=== PATIENT | female | born 1985 | race Caucasian/White ===

== ENCOUNTER 2019-10-24 15:00 | Inpatient (IN) | payer OTHER ==
[2019-10-24] MEDS: ELECTROLYTE-148 SOLN 1,000 ML IV SCH (16:30)
[2019-10-24 16:33] LABS: BASO % 0.6 % (0-2.0); EOS % 0.8 % (0-4.5); HEMATOCRIT 29.9 % (32.4-45.2); HEMOGLOBIN 9.7 GM/dL (10.7-15.3); LYMPH % 26.8 % (8-40); MCHC 32.5 g/dl (32.0-36.0); MEAN CELL VOLUME 83.2 fl (80-96); MEAN PLT VOLUME 9.6 fl (7.5-11.1); NEUT % 63.8 % (42.8-82.8); PLATELET COUNT 213 K/MM3 (134-434); RDW 15.4 % (11.6-15.6); WHITE BLOOD COUNT 8.8 K/mm3 (4.0-10.0)
[2019-10-24 16:46] LABS: INR 0.93 (0.83-1.09)
[2019-10-24 16:49] LABS: ACTIVATED PTT 26.9 SECONDS (25.2-36.5)
[2019-10-24 16:57] VITALS: BMI 33.4
[2019-10-24 17:03] LABS: BLOOD UREA NITROGEN 13.3 mg/dL (7-18); CALCIUM 8.8 mg/dL (8.5-10.1); CREATININE 0.6 mg/dL (0.55-1.3); POTASSIUM 3.6 mmol/L (3.5-5.1)
[2019-10-24] MEDS ORDERED: LABETALOL HCL 200 MG TABLET (FP) ONE (17:48)
[2019-10-24] MEDS ORDERED: LABETALOL HCL 200 MG TABLET (FP) PO ONE (18:10)
--- NOTE | 2019-10-24 20:07 | HP ---
Past Medical History - Primary Care Physician PCP:: Otilio Guerrero E - Admission Chief Complaint: Patient is 36 wks 2 days of her 3rd . She was scheduled for repeat c/section and trubal sterilization atr 39 wks. Her BP deterorated in spite of being placed on Labetalol. LFTs are up. Total proteins in 24 hrs urine collection is 3808 mg. She will be delivered tomorrow. Given BMZ some week ago History Source: Patient - Past Medical History Cardiovascular: No: AFIB, Aneurysm, Aortic Insufficiency, Aortic Stenosis, CAD, CHF, Deep Vein Thrombosis, HTN, Hyperlipdemia, ND, Mitral Insufficiency, Mitral Stenosis, Murmur, Pulmonary Hypertension, Other Pulmonary: No: Asthma, Bronchitis, Cancer, COPD, O2 Dependent, Pneumonia, Previously Intubated, Pulmonary Embolus, Pulmonary Fibrosis, Sleep Apnea, Other Gastrointestinal: No: Ascites, Cancer, Constipation, Crohn's Disease, Diverticulitis, Diverticulosis, Esophageal Varices, Gastritis, GERD, GI Bleed, Hemorrhoids, Hiatal Hernia, Inflamatory Bowel Disease, Irritable Bowel Disease, Pancreatitis, Peptic Ulcer Disease, Ulcerative Colitis, Other Hepatobiliary: No: Cirrhosis, Cholelithiasis, Cholecystitis, Choledocholithiasis , Hepatitis A, Hepatitis B, Hepatitis C, Other Renal/: No: Renal Failure, Renal Inusuff, BPH, Cancer, Hematuria, Hemodialysis , Neurogenic Bladder, Renal Calculi, UTI, Other ...: 3 ...Para: 2 ...Term: 2 ...: 0 ...Spon : 0 ...Induced : 0 ...Multiple Gestation: 0 ...LMP: 02/12/19 ... Weeks Gestation by Dates: 36.2 ...EDC by Dates: 11/19/19 ...EDC by Sono: 11/19/19 Heme/Onc: No: Anemia, B12 Deficiency, Bleeding Disorder, Cancer, Current Chemotherapy, Current Radiation Therapy, Hemochromatosis, Hypercoaguable State, Myeloproliferative Synd, Sickle Cell Disease, Sickle Cell Trait, Thrombocytopenia, Other Infectious Disease: No: AIDS, C-Diff, Herpes Zoster, HIV, MRSA, STD's, Tuberculosis, VREF, Other Psych: No: Addictions, Anxiety, Bipolar, Depression, Panic, Psychosis, Schizophrenia, Other Musculoskeletal: No: Bursitis, Chronic low back pain, Hemiparesis, Hemiplegia, Osteoarthritis, Paraplegia, Other ENT: No: Allergic Rhinitis, Sinusitis, Other Endocrine: No: [place]'s Disease, [place]'s Disease, Diabetes Insipidus, Diabetes Mellitus, Hyperparathyroidism, Hyperthyroidism, Hypothyroidism, Osteopenia, SIADH, Other - Past Surgical History Past Surgical History: No: None, AAA Repair, AICD, Amputation, Appendectomy, Arthrosocopy, AV Fistula/Graft, Bariatric Surgery, Breast Biopsy, Bypass, CABG, Carotid Endarterectomy, Cataract Removal, Cholecystectomy, Colectomy, Colonoscopy, Colostomy, Craniotomy, , Cystectomy, Hernia Repair, Hysterectomy, Ileal Conduit, Ileosotomy, Joint Replacement, Kidney Transplant, Laminectomy, Liver Transplant, Mastectomy, Nephrectomy, Oopherectomy, Orchiectomy, Permanent Pacemaker, Prostatectomy, Splenectomy, Stent, Thoracotomy , TURP, Tonsillectomy, Tubal Ligation, Upper Endoscopy, Valve Replacement, Vasectomy, Vein Stripping/Ligation Hx Myomectomy: No Hx Transabdominal Cerclage: No - Smoking History Smoking history: Never smoked Have you smoked in the past 12 months: No Aproximately how many cigarettes per day: 0 - Alcohol/Substance Use Hx Alcohol Use: No Home Medications - Allergies Allergies/Adverse Reactions: Allergies Allergy/AdvReac Type Severity Reaction Status Date / Time No Known Drug Allergies Allergy Verified 10/24/19 16:24 shellfish derived Allergy Itching Verified 10/24/19 16:24 - Home Medications Home Medications: Ambulatory Orders Aspirin [Ecotrin] 81 mg PO DAILY 10/19/19 Pnv No.95/Ferrous Fum/Folic AC [ Vitamin Tablet] 1 each PO DAILY Labetalol HCl [Normodyne -] 100 mg PO BID 10/23/19 Home Medications (free text): Off baby-ASA for a week. Review of Systems - Review of Systems Constitutional: denies: No Symptoms, Chills, Diaphoresis, Fever, Lethargy, Loss of Appetite, Malaise, Night Sweats, Unintentional Wgt. Loss, Weakness, Other HENT: denies: No Symptoms, Difficult Swallowing, Ear Discharge, Ear Pain, Epistaxis, Gingival Bleeding, Hearing Loss, Mouth Swelling, Nasal Congestion, Ocular Prosthesis, Throat Pain, Toothache, Ringing in Ears, Other Cardiovascular: denies: No Symptoms, Chest Pain, Edema, Palpitations, Shortness of Breath, Other Respiratory: denies: No Symptoms, Cough, Exercise Intolerance, Hemoptysis, Orthopnea, PND, Snoring, SOB, SOB on Exertion, Wheezing, Other Gastrointestinal: denies: No Symptoms, Abdominal Pain, Bloating, Constipation, Diarrhea, Dysphagia, Indigestion, Melena, Nausea, Rectal Bleeding, Vomiting, Vomiting Blood, Other Genitourinary: denies: No Symptoms, Burning, Discharge, Dysuria, Flank Pain, Frequency, Hematuria, Incontinence, Lesions, Menses, Pain, Testicular Mass, Testicular Pain, Testicular Swelling, Urgency, Vaginal Bleeding, Other Breasts: denies: No Symptoms Reported, See HPI, Breast Implants, Discharge from Nipple, Lumps, Pain, Skin Changes, Other Musculoskeletal: denies: No Symptoms, Back Pain, Crepitus, Decreased ROM, Extremity Pain, Joint Pain, Joint Swelling, Muscle Pain, Muscle Cramps, Muscle Weakness, Other Integumentary: denies: No Symptoms, Blister, Bruising, Change in Color, Eczema, Erythema, Incision, Lesions, Lump, Pallor, Pruritis, Rash, Wound, Other Neurological: denies: No Symptoms, Change in LOC, Change in Speech, Confusion, Dizziness, Headache, Incoordination, Numbness, Parasthesia, Pre-Existing Deficit , Seizure, Syncope, Tremors, Unsteady Gait, Weakness, Other Endocrine: denies: No Symptoms, Excessive Sweating, Flushing, Increased Hunger, Increased Thirst, Intolerance to Cold, Intolerance to Heat, Unexplained Weight Gain, Unexplained Weight Loss, Other Hematology/Lymphatic: denies: No Symptoms, Easily Bruised, Excessive Bleeding, Swollen Glands, Other Psychiatric: denies: No Symptoms, Altered Sleep Pattern, Anxiety, Depression, Hallucinations, Panic, Paranoia, Suicidal, Other Physical Exam - Maternity Vital Signs: Vital Signs Temperature 98.5 F 10/24/19 18:00 Pulse Rate 81 10/24/19 19:59 Respiratory Rate 18 10/24/19 19:59 Blood Pressure 154/92 10/24/19 19:59 O2 Sat by Pulse Oximetry (%) Constitutional: Yes: Well Nourished, No Distress, Calm Eyes: Yes: WNL, Conjunctiva Clear, EOM Intact HENT: Yes: WNL, Atraumatic, Normocephalic Neck: Yes: WNL, Supple, Trachea Midline Cardiovascular: Yes: WNL, Regular Rate and Rhythm Breast(s): Yes: WNL - Abdominal Exam/OB Number of Fetuses: Single Presentation: Vertex Contractions: No Monitor Mode: External Heart Rate (range): 140 Heart Rate Location: [facility] Category: I Accelerations: Uniform Decelerations: None - Vaginal Exam/OB Vaginal Bleediing: No Speculum Exam: No Dilatation (cm): 0 Effacement (%): 0 Amniotic Membrane Status: Intact Presentation: Vertex/Position Station: -3 - Physical Exam Musculoskeletal: Yes: WNL Extremities: Yes: WNL Edema: LLE: Trace, RLE: Trace Integumentary: Yes: WNL Deep Tendon Reflex Grade: Normal +2 ...Motor Strength: WNL Psychiatric: Yes: WNL - Labs Lab Results: CBC, BMP 10/24/19 16:00 10/24/19 16:00 Problem List - Problems (1) Pre-eclampsia affecting , antepartum Code(s): O14.90 - UNSPECIFIED PRE-ECLAMPSIA, UNSPECIFIED TRIMESTER (2) Previous delivery, antepartum Code(s): O34.219 - MATERNAL CARE FOR UNSP TYPE SCAR FROM PREVIOUS DEL (3) tubal ligation planned Code(s): [id number] - Assessment/Plan Admitted at 36 w 2 d for repeat c/section. Previous c/section x 2. Desire for sterilization. Detriorating preeclampsia, PAH. Delivery to be expedited. Patient was given BMZ a week aoSha May understands the indications, all risks and possible complications and consents to the procedure.
[2019-10-25] MEDS: ELECTROLYTE-148 SOLN 1,000 ML IV SCH (00:05)
[2019-10-25] MEDS ORDERED: CITRIC ACID/SODIUM CITRATE 30 ML UNIT-DOSE CUP PO ONE (06:40)
[2019-10-25] MEDS ORDERED: ELECTROLYTE-148 SOLN 500 ML IV ONE (06:40)
[2019-10-25] MEDS ORDERED: ELECTROLYTE-148 SOLN 1,000 ML IV SCH ×2 (07:09→09:45)
--- NOTE | 2019-10-25 09:42 | PN ---
Delivery - Delivery Section: Repeat, Low Flap Transverse (repeat c/section bilateral salpingectomy multiple fibroids) Type of Anesthesia: Spinal Episiotomy/Laceration: None EBL (cc): 600 Delivery, Single - Stages of Labor Date of Delivery: 10/25/19 Time of Delivery: 08:34 Time Placenta Delivered: 08:35 - Condition of Infant Communications Director/Etymology Teacher Present: Yes Name: Ammy Khanna Infant Gender: Female Weight: 6 lb 13 oz Position: Left, OA Total Hours ROM (Hrs/Mins): 3 min - 1 Minute Total Score: 9 5 Minutes Total Score: 9 - Feeding Plan Initial Plan: Elected not to breastfeed exclusively throughout hospitalization Benefits of Exclusively reinforced: Yes Remarks - Remarks Remarks: Multiple myomata. No complications BP stable; given Labetalol 30 mg iv.
[2019-10-25] MEDS ORDERED: METHYLERGONOVINE MALEATE 0.2 MG/1 ML AMP IM PRN (09:43)
--- NOTE | 2019-10-25 09:46 | SURG ---
Surgery Qualifications Examiner Note Qualifications Examiner: Vicente Jaimes PA-C Date of Service: 10/25/19 Diagnosis: Pre-eclampsia Procedure: Repeat low transverse section with bilateral salpingectomy I was present for the entirety of the operative procedure. For further detail, please refer to operative report. Visit type - Case Type Case Type: Scheduled - New patient This patient is new to me today: Yes Date on this admission: 10/25/19
[2019-10-25] MEDS ORDERED: ENOXAPARIN NA (PORCINE) 40 MG/0.4 ML DISP.SYRIN SQ SCH ×2 (10:00→22:00)
[2019-10-25] MEDS ORDERED: LABETALOL HCL 100 MG TABLET (FP) PO SCH (10:00)
[2019-10-25] MEDS: OXYTOCIN 20 UNITS in 0.9% NS 20 UNIT/1,000 ML INFUS.BAG IV SCH (10:00)
[2019-10-25] MEDS ORDERED: CEFAZOLIN 1 GM in DEXTROSE 5%-WATER - 50 ML IVPB SCH (10:00)
[2019-10-25] MEDS ORDERED: LABETALOL HCL 200 MG TABLET (FP) PO SCH (10:15)
[2019-10-25] MEDS: ACETAMINOPHEN 1000 MG/100 ML VIAL (NON FORMULARY) IVPB PRN ×2 (13:04→20:19)
[2019-10-25] MEDS: LABETALOL HCL 200 MG TABLET (FP) PO SCH ×2 (14:04→21:29)
[2019-10-25] MEDS ORDERED: ONDANSETRON 4 MG/2 ML VIAL IVPUSH PRN (14:53)
[2019-10-25] MEDS: CEFAZOLIN 2 GM/D5W 2 GM/50 ML ML IVPB SCH (15:29)
--- NOTE | 2019-10-25 19:35 | OP ---
DATE OF OPERATION: DATE OF DICTATION: 10/25/2019 PREOPERATIVE DIAGNOSIS: 1. Intrauterine 36 weeks and 3 days. 2. aggravated hypertension, preeclampsia, deteriorating. 3. Previous section x2. 4. Desire for permanent sterilization. 5. Incisional keloid. POSTOPERATIVE DIAGNOSIS: 1. Intrauterine 36 weeks and 3 days. 2. aggravated hypertension, preeclampsia, deteriorating. 3. Previous section x2. 4. Desire for permanent sterilization. 5. Incisional keloid. OPERATION: 1. Repeat low segment transverse section. 2. Excision of keloid. 3. Bilateral salpingectomy for the purpose of sterilization. ANESTHESIA: Spinal. ANESTHESIOLOGIST: Cricket Peres MD SURGEON: Dunia Edwards MD AUTO RADIATOR SPECIALIST: PA Hall NEONATOLOGY: Rhoda Khanna DO FINDINGS: Near term uterus with multiple leiomyomata. Female in vertex presentation. Minimal adhesions. DESCRIPTION OF PROCEDURE: Under excellent spinal block in dorsal supine position with left lateral tilt, patient was prepped and draped in a normal fashion. Pfannenstiel keloid was excised in wedge-like fashion. Incision was carried transversely through subcutaneous tissue and fascia. Recti muscles were dissected on the fascia, and in the midline. Peritoneum was opened in the upper part of the incision and extended vertically. Bladder flap was incised, and hysterotomy was placed transversely. It was extended laterally. Clear amniotic fluid was noted. Female live infant was delivered, cried and breathed spontaneously. Cord was divided with a delay. Baby was handed off to the health unit clerk and was given Apgars 9 and 9. Baby's weight was subsequently reported as 6 pounds 13 ounces. Placenta was removed and uterine cavity was cleaned. Multiple fibroids were noted on the surface of the uterus, and there were also about 3 cm submucous fibroids in the posterior part of the fundus. Internal os was dilated with sponge stick. Hysterotomy was then closed with continuous running Biosyn 0 interlocking suture. Hemostasis was excellent. Both tubes were identified. Right tube was elevated, and using LigaSure device, mesosalpinx was divided. Tube was disconnected from the uterus and sent as a specimen. Same procedure was then repeated on the left side. The area of excision was carefully examined and secured with LigaSure. Uterus was placed back in the abdomen. Lavage was carried out, and hemostasis was attended to meticulously. Count was reported as correct. Abdomen was closed in layers. Peritoneum was closed with continuous running Biosyn 2-0 and fascia with continuous Vicryl 1 sutures. Small piece of Surgicel was placed on the fascia in the left angle because of mild surface oozing. Subcutaneous tissue was approximated with Vicryl 2 sutures, and skin was approximated with continuous running 4-0 Biosyn subcuticular suture and Steri-Strips. Sterile dressing was then placed and held in place with binder. Total blood loss was 600 mL. Urine was clear in the Ramires catheter bag. Patient was transferred to PACU in stable condition. DUNIA EDWARDS MD [id number] MTDD
[2019-10-26] MEDS: CEFAZOLIN 2 GM/D5W 2 GM/50 ML ML IVPB SCH (00:06)
[2019-10-26] MEDS: IBUPROFEN 600 MG TABLET (FP) PO PRN ×3 (05:53→22:45)
[2019-10-26] MEDS: SIMETHICONE 80 MG TAB.CHEW (FP) PO PRN ×3 (05:53→22:45)
[2019-10-26] MEDS: oxyCODONE HCL 5 MG TABLET PO PRN ×3 (05:53→22:45)
[2019-10-26] MEDS: LABETALOL HCL 200 MG TABLET (FP) PO SCH (06:07)
[2019-10-26 08:13] LABS: BASO % 0.2 % (0-2.0); EOS % 0.2 % (0-4.5); HEMATOCRIT 19.1 % (32.4-45.2); LYMPH % 14.4 % (8-40); MCH 27.6 pg (25.7-33.7); MEAN CELL VOLUME 83.8 fl (80-96); MEAN PLT VOLUME 9.1 fl (7.5-11.1); MONO % 6.6 % (3.8-10.2); NEUT % 78.6 % (42.8-82.8); PLATELET COUNT 178 K/MM3 (134-434); RBC 2.28 M/mm3 (3.60-5.2); RDW 15.3 % (11.6-15.6); WHITE BLOOD COUNT 13.8 K/mm3 (4.0-10.0)
[2019-10-26 08:23] LABS: HEMOGLOBIN 6.3 GM/dL (10.7-15.3)
[2019-10-26] MEDS ORDERED: BISACODYL 10 MG SUPP.RECT RC PRN (09:43)
[2019-10-26] MEDS: PRENATAL VITAMINS W/ FOLIC ACID TABLET (FP) PO SCH (10:25)
--- NOTE | 2019-10-26 11:16 | PN ---
Progress Note (short form) - Note Progress Note: 10.25.19. Patient seen postop. Doing well. All discussed . Observe BP. Increased Labetalol. OOB! Problem List - Problems (1) Pre-eclampsia affecting , antepartum Code(s): O14.90 - UNSPECIFIED PRE-ECLAMPSIA, UNSPECIFIED TRIMESTER (2) Previous delivery, antepartum Code(s): O34.219 - MATERNAL CARE FOR UNSP TYPE SCAR FROM PREVIOUS DEL (3) tubal ligation planned Code(s): [id number] -
[2019-10-26] MEDS ORDERED: POLYETHYLENE GLYCOL 3350 119 GM BTL PO PRN (15:13)
--- NOTE | 2019-10-26 15:14 | PN ---
Progress Note (short form) - Note Progress Note: POD 1, s/p repeat c/section bilateral salpingectomy for preeclampsia. Pt states she is feeling "okay". Has some dizziness (noted to be anemic). Has been oob, tolerating PO. States vaginal bleeding is minimal. Denies cp/sob, n/v/ d, palpitations. Vital Signs Temp 98.2 F 10/26/19 14:39 Pulse 100 H 10/26/19 14:39 Resp 18 10/26/19 14:39 BP 118/63 10/26/19 14:39 Pulse Ox 100 10/25/19 10:55 Intake & Output 10/25/19 10/26/19 10/26/19 23:59 11:59 23:59 Intake Total 1725 1250 Output Total 1000 200 Balance 725 1050 Intake: IV 1425 1000 NORMAL SALINE+20 UNITS 1175 1000 OXYTOCIN - 20 unit In 1, 000 ml @ 125 mls/hr IV ASDIR KATIE Rx#:[id number] Plasma-Lyte 148 - 1,000 250 ml @ 125 mls/hr IV ASDIR KATIE Rx#:[id number] IVPB 100 150 Oral 200 100 Output: Urine 1000 200 Ramires 1000 Void 200 Other: Voiding Method Bedpan Toilet CBC, BMP 10/26/19 07:52 10/24/19 16:00 Gen: awake, alert, nad, laying in bed with at bedside. Appears pale Resp: unlabored on Ra Abdo: soft, + ttp at incision site, appropriate to status. Dressing c/d/i. no erythema or drainage noted A/P: 34 y/o F w/ no significant PMHx, now POd 1, s/p repeat c/section bilateral salpingectomy for preeclampsia. afebrile, vss H/H noted, will hold off transfusion per Dr Guerrero -CBC in AM -Monitor vs closely -Pt instructed to inform RN is any dizziness, palpitations, cp, etc -Monitor vaginal bleeding -Pain control as ordered -Iron and Vitamin c ordered -Bowel regimen as ordered -Continue regular diet -OOB -assist as needed -Will follow addendum: Lovenox put on hold, per Dr Guerrero transfuse 1 unit pRBCs. RN aware , cbc pending for AM d/w attending Dr Guerrero
[2019-10-26] MEDS: FERROUS SO4 325 MG TABLET (FP) PO SCH (16:37)
[2019-10-26] MEDS: ASCORBIC ACID 250 MG TABLET (FP) PO SCH (17:42)
--- NOTE | 2019-10-26 18:12 | PN ---
Progress Note (short form) - Note Progress Note: Patient is quite enemic and symptomatic. No active bleeding. Discussed options - will transfuse 1-2 u. of P/C. Problem List - Problems (1) Pre-eclampsia affecting , antepartum Code(s): O14.90 - UNSPECIFIED PRE-ECLAMPSIA, UNSPECIFIED TRIMESTER (2) Previous delivery, antepartum Code(s): O34.219 - MATERNAL CARE FOR UNSP TYPE SCAR FROM PREVIOUS DEL (3) tubal ligation planned Code(s): [id number] -
[2019-10-26] MEDS: DOCUSATE SODIUM 100 MG CAPSULE (FP) PO SCH (22:45)
[2019-10-27] MEDS: OXYTOCIN 20 UNITS in 0.9% NS 20 UNIT/1,000 ML INFUS.BAG IV SCH (00:51)
[2019-10-27] MEDS: oxyCODONE HCL 5 MG TABLET PO PRN ×3 (07:22→17:50)
[2019-10-27] MEDS: IBUPROFEN 600 MG TABLET (FP) PO PRN ×3 (07:23→17:51)
[2019-10-27] MEDS: SIMETHICONE 80 MG TAB.CHEW (FP) PO PRN ×3 (07:23→17:52)
[2019-10-27] MEDS ORDERED: oxyCODONE HCL 5 MG TABLET PO PRN (08:14)
--- NOTE | 2019-10-27 09:19 | PN ---
Progress Note (short form) - Note Progress Note: POD#2, s/p repeat c/section bilateral salpingectomy for preeclampsia. Pt states she is having a lot of abdominal pain which has worsened since yesterday. Her pain is mostly over the upper abdominal quadrants and moderated over the incision. She is tolerating her diet and moving her bowels/voiding without limitation. She denies any CP, SOB, fever, chills, N/V dizziness or headache. She recieved 2 units of PRBC last night which she tolerated overall. Vital Signs Temp 98.4 F 10/26/19 21:45 Pulse 98 H 10/26/19 21:45 Resp 18 10/26/19 21:45 BP 129/75 10/26/19 21:45 Pulse Ox 100 10/25/19 10:55 Intake & Output 10/26/19 10/26/19 10/27/19 11:59 23:59 11:59 Intake Total 1250 1000 Output Total 675 500 Balance 575 500 Intake: IV 1000 NORMAL SALINE+20 UNITS 1000 OXYTOCIN - 20 unit In 1, 000 ml @ 125 mls/hr IV ASDIR [facility] Rx#:[id number] IVPB 150 300 Oral 100 Packed Cells 700 Output: Urine 675 500 Void 675 500 Other: Voiding Method Toilet Toilet Toilet CBC, BMP 10/27/19 08:50 10/24/19 16:00 Gen: awake, alert, nad, Resp: unlabored on RA Abdo: Obese, soft, with moderated + ttp and some guarding over upper quadrants and less ttp at incision site, palpable non-pulsitile mass at epigastric area also TTP, Incision c/d/i with steri strips in place, surrounding tissue intact with no tracking erythema, edema or active d/c. B/L LE compartments soft, supple and non-tender Problem List - Problems (1) Previous delivery, antepartum Assessment/Plan: A/P: 34 y/o F w/ no significant PMHx, now POd 2, s/p repeat c/section bilateral salpingectomy for preeclampsia. afebrile, vss s/p transfusion PRBC 2 units worsening abdominal pain with palpable mass -CT scan abdomen and pelvis to evaluate epigastric mass -trend H&H, will rpt this afternoon -Monitor vs closely -Pt instructed to inform RN is any dizziness, palpitations, cp, etc -Monitor vaginal bleeding -Pain control as ordered-increased oxy 10m Q4hr PRN -Iron and Vitamin c ordered -Bowel regimen as ordered -Continue regular diet -continue to hold lovenox -OOB -assist as needed -Will follow d/w attending Dr Guerrero Code(s): O34.219 - MATERNAL CARE FOR UNSP TYPE SCAR FROM PREVIOUS DEL (2) section Code(s): Z98.89 - OTHER SPECIFIED POSTPROCEDURAL STATES * DO NOT USE *
[2019-10-27 09:27] LABS: BASO % 0.2 % (0-2.0); EOS % 0.1 % (0-4.5); HEMATOCRIT 25.4 % (32.4-45.2); HEMOGLOBIN 8.5 GM/dL (10.7-15.3); LYMPH % 12.3 % (8-40); MCH 27.9 pg (25.7-33.7); MCHC 33.3 g/dl (32.0-36.0); MEAN CELL VOLUME 83.7 fl (80-96); MONO % 5.7 % (3.8-10.2); NEUT % 81.7 % (42.8-82.8); PLATELET COUNT 179 K/MM3 (134-434); RBC 3.03 M/mm3 (3.60-5.2); RDW 14.7 % (11.6-15.6); WHITE BLOOD COUNT 16.6 K/mm3 (4.0-10.0)
[2019-10-27] MEDS: FERROUS SO4 325 MG TABLET (FP) PO SCH (09:34)
[2019-10-27] MEDS: DOCUSATE SODIUM 100 MG CAPSULE (FP) PO SCH ×2 (09:34→22:13)
[2019-10-27] MEDS: PRENATAL VITAMINS W/ FOLIC ACID TABLET (FP) PO SCH (09:34)
[2019-10-27] MEDS: ASCORBIC ACID 250 MG TABLET (FP) PO SCH (09:34)
--- NOTE | 2019-10-27 15:42 | PN ---
Progress Note (short form) - Note Progress Note: Patient developed pain last night. Level 8 this am with "epigastric mess". CT of abdomen revealed abdominal wall hematoma, quite large. It explains drop in H&H. Reviewed with IR, clot. Would be difficult to drain at present. At 15;00 hrs pain is better. Abdomen benign. Options reviewed w pt. No exploration or drainage. We'll use binder, ice, antibiotics. Reviewed CT w Dr. Soto. Closure was uneventful. THIS IS A WELL KNOWN COMPLICATION OF ROUTINE LOVENOX COVERAGE. I/P: Post op wound hematoma, most likely secondary to Lovenox. CBC stable after transfusion of 2 units of P/C. Pain is better. Binder, ice. Augmentin. CBC in am. Problem List - Problems (1) Pre-eclampsia affecting , antepartum Code(s): O14.90 - UNSPECIFIED PRE-ECLAMPSIA, UNSPECIFIED TRIMESTER (2) Previous delivery, antepartum Code(s): O34.219 - MATERNAL CARE FOR UNSP TYPE SCAR FROM PREVIOUS DEL (3) tubal ligation planned Code(s): [id number] -
[2019-10-27] MEDS ORDERED: AMOX TR/POT CLAV 875MG/125MG TABLETS (FP) PO ONE ×3 (15:45→22:00)
[2019-10-28] MEDS: SIMETHICONE 80 MG TAB.CHEW (FP) PO PRN (02:04)
[2019-10-28] MEDS: IBUPROFEN 600 MG TABLET (FP) PO PRN ×2 (02:04→17:55)
[2019-10-28] MEDS: oxyCODONE HCL 5 MG TABLET PO PRN (02:05)
[2019-10-28 07:23] LABS: BASO % 0.4 % (0-2.0); EOS % 1.5 % (0-4.5); HEMATOCRIT 24.4 % (32.4-45.2); HEMOGLOBIN 8.2 GM/dL (10.7-15.3); LYMPH % 14.7 % (8-40); MCH 27.9 pg (25.7-33.7); MCHC 33.7 g/dl (32.0-36.0); MEAN CELL VOLUME 82.9 fl (80-96); MEAN PLT VOLUME 8.6 fl (7.5-11.1); NEUT % 78.4 % (42.8-82.8); PLATELET COUNT 191 K/MM3 (134-434); RBC 2.94 M/mm3 (3.60-5.2); RDW 14.9 % (11.6-15.6); WHITE BLOOD COUNT 12.5 K/mm3 (4.0-10.0)
--- NOTE | 2019-10-28 08:40 | PN ---
Progress Note (short form) - Note Progress Note: VSS. Pt. is doing much better. Pain under control BP is up again. PE much better. Abdomen soft. Uterus contracted. Collection palpable. Kanwal CVA, extremities tenderness. I/P: Recovering. Back on Labetalol. CBC stable, WBC down. Cont. Augmentin. Observe. Problem List - Problems (1) Pre-eclampsia affecting , antepartum Code(s): O14.90 - UNSPECIFIED PRE-ECLAMPSIA, UNSPECIFIED TRIMESTER (2) Previous delivery, antepartum Code(s): O34.219 - MATERNAL CARE FOR UNSP TYPE SCAR FROM PREVIOUS DEL (3) tubal ligation planned Code(s): [id number] - (4) Wound hematoma following section, Code(s): O90.2 - HEMATOMA OF OBSTETRIC WOUND
[2019-10-28] MEDS: AMOX TR/POT CLAV 875MG/125MG TABLETS (FP) PO SCH ×2 (08:44→17:52)
[2019-10-28] MEDS: DOCUSATE SODIUM 100 MG CAPSULE (FP) PO SCH ×2 (09:18→21:53)
[2019-10-28] MEDS: FERROUS SO4 325 MG TABLET (FP) PO SCH (09:18)
[2019-10-28] MEDS: ASCORBIC ACID 250 MG TABLET (FP) PO SCH (09:18)
[2019-10-28] MEDS: PRENATAL VITAMINS W/ FOLIC ACID TABLET (FP) PO SCH (09:18)
[2019-10-28] MEDS: LABETALOL HCL 100 MG TABLET (FP) PO SCH ×2 (09:18→21:53)
[2019-10-29] MEDS: IBUPROFEN 600 MG TABLET (FP) PO PRN (02:27)
[2019-10-29] MEDS: SIMETHICONE 80 MG TAB.CHEW (FP) PO PRN (02:27)
[2019-10-29] MEDS: FERROUS SO4 325 MG TABLET (FP) PO SCH (09:46)
[2019-10-29] MEDS: AMOX TR/POT CLAV 875MG/125MG TABLETS (FP) PO SCH ×2 (09:46→18:00)
[2019-10-29] MEDS: PRENATAL VITAMINS W/ FOLIC ACID TABLET (FP) PO SCH (09:46)
[2019-10-29] MEDS: DOCUSATE SODIUM 100 MG CAPSULE (FP) PO SCH (09:46)
[2019-10-29] MEDS: LABETALOL HCL 100 MG TABLET (FP) PO SCH (09:46)
[2019-10-29] MEDS: ASCORBIC ACID 250 MG TABLET (FP) PO SCH (10:25)
[2019-10-29 12:55] VITALS: BP 139/90; PULSE 96; TEMP 98.3
--- NOTE | 2019-10-29 13:00 | PN ---
Post Progress Note Post Day: 5 Type of Delivery: Repeat C/S Vital Signs: Vital Signs Temperature 98.3 F 10/29/19 10:00 Pulse Rate 96 H 10/29/19 10:00 Respiratory Rate 18 10/29/19 10:00 Blood Pressure 139/90 10/29/19 10:00 O2 Sat by Pulse Oximetry (%) 100 10/28/19 22:00 Breast Exam: Yes: Soft Uterus: Yes: Fundus Firm, Fundus below umbilicus, Non-tender Incision: Yes: Dressing dry and intact, Sutures intact Abdomen/GI: Yes: Abdomen soft, Tolerating PO Lochia: Yes: Serosa Lochia, amount: Small Extremities: Yes: Calves non-tender Perineum: Yes: Intact Activity: Ambulating - Labs Labs: CBC WBC 12.5 K/mm3 (4.0-10.0) H 10/28/19 06:45 RBC 2.94 M/mm3 (3.60-5.2) L 10/28/19 06:45 Hgb 8.2 GM/dL (10.7-15.3) L 10/28/19 06:45 Hct 24.4 % (32.4-45.2) L 10/28/19 06:45 MCV 82.9 fl (80-96) 10/28/19 06:45 MCH 27.9 pg (25.7-33.7) 10/28/19 06:45 MCHC 33.7 g/dl (32.0-36.0) 10/28/19 06:45 RDW 14.9 % (11.6-15.6) 10/28/19 06:45 Plt Count 191 K/MM3 (134-434) 10/28/19 06:45 MPV 8.6 fl (7.5-11.1) 10/28/19 06:45 Absolute Neuts (auto) 9.8 K/mm3 (1.5-8.0) H 10/28/19 06:45 Neutrophils % 78.4 % (42.8-82.8) 10/28/19 06:45 Lymphocytes % 14.7 % (8-40) 10/28/19 06:45 Monocytes % 5.0 % (3.8-10.2) 10/28/19 06:45 Eosinophils % 1.5 % (0-4.5) D 10/28/19 06:45 Basophils % 0.4 % (0-2.0) 10/28/19 06:45 Nucleated RBC % 0 % (0-0) 10/28/19 06:45 Other Findings, Remarks: doing well, ambulating well, c s site looks clean and dry, no hematoma, not tender upon deep palpation, no regid, no guarding, no rebound , normal healing process of post c s wound site , dc pt home today . Assessment/Plan as trisha cooper pt home today
--- NOTE | 2019-10-29 13:02 | DS ---
Physical Exam-INTERPRETER DEAF Vital Signs: Vital Signs Temperature 98.3 F 10/29/19 10:00 Pulse Rate 96 H 10/29/19 10:00 Respiratory Rate 18 10/29/19 10:00 Blood Pressure 139/90 10/29/19 10:00 O2 Sat by Pulse Oximetry (%) 100 10/28/19 22:00 Constitutional: Yes: Well Nourished, No Distress, Calm Eyes: Yes: WNL, Conjunctiva Clear, EOM Intact HENT: Yes: WNL, Atraumatic, Normocephalic Neck: Yes: WNL, Supple, Trachea Midline Cardiovascular: Yes: WNL, Regular Rate and Rhythm Respiratory: Yes: WNL, Regular, CTA Bilaterally Gastrointestinal: Yes: WNL, Normal Bowel Sounds, Soft ...Rectal Exam: Yes: WNL Renal/: Yes: WNL Pelvis: Yes: WNL External Genitalia: Yes: Normal Internal Exam Deferred: No Vaginal Exam: Yes: Normal Cervix: Yes: Normal Uterus: Yes: Normal Adnexa: Normal: Bilateral ....Post : Yes: Uterus firm, Uterus non-tender Breast(s): Yes: WNL Musculoskeletal: Yes: WNL Extremities: Yes: WNL Edema: Yes Edema: LUE: 1+, RUE: 1+, LLE: 1+, RLE: 1+ Integumentary: Yes: WNL Wound/Incision: Yes: Clean/Dry, Well Approximated Neurological: Yes: WNL, Alert, Oriented ...Motor Strength: WNL Psychiatric: Yes: WNL, Alert, Oriented Labs: CBC, BMP 10/28/19 06:45 10/24/19 16:00 Delivery - Delivery Section: Repeat, Low Flap Transverse (repeat c/section bilateral salpingectomy multiple fibroids) Type of Anesthesia: Spinal Episiotomy/Laceration: None EBL (cc): 600 Delivery, Single - Stages of Labor Date of Delivery: 10/25/19 Time of Delivery: 08:34 Time Placenta Delivered: 08:35 - Condition of Infant Movie Producer/Service Order Expediter Present: Yes Name: Ammy Khanna Infant Gender: Female Weight: 3.09 kg Position: Left, OA Total Hours ROM (Hrs/Mins): 3 min - 1 Minute Total Score: 9 5 Minutes Total Score: 9 - Feeding Plan Initial Plan: Elected not to breastfeed exclusively throughout hospitalization Benefits of Exclusively reinforced: Yes Discharge Summary Problems reviewed: Yes Reason For Visit: REPEAT Current Active Problems tubal ligation planned (Acute) Pre-eclampsia affecting , antepartum (Acute) Previous delivery, antepartum (Acute) Wound hematoma following section, (Acute) Procedures: Principal: repeat lt c s Hospital Course: painful abdomen Condition: Stable - Instructions Diet, Activity, Other Instructions: Discharge Instructions: Wound care You have steri-strips over your incision. Leave these in place. They will peel off in the next 7 to 10 days. Do Not peel them off. You may shower after surgery. If there are tapes present on the skin, they can get wet. When showering, allow soap and water to run over the incision, do not scrub the incision. Pat dry well after showering. You may continue to use the abdominal binder for comfort. When coughing, sneezing or getting up it is helpful to hold a pillow against the incision for comfort. Diet There are no dietary restrictions. Eat healthy, high-fiber foods. Drink 6 to 8 glasses of liquid each day. This will assist in keeping your bowels are regular. You may want to take an over the counter stool softener such as DulcoEase as constipation is a common side effect of narcotic pain medications. Activity: No heavy lifting, exercise or strenuous activity until cleared by your doctor. Do not lift anything heavier than the baby until otherwise cleared by your doctor. Dont try to take care of anyone other than the baby and yourself. Get lots of rest, take naps in throughout the day. Increase your activity level bit by bit. We recommend postsurgical breathing and coughing exercises to help keep your lungs clear. You may take the incentive spirometer home with you and continue using it. Do not drive until cleared by your doctor. No sexual activity until cleared by your doctor. The best exercise is walking. Small amounts done frequently are best. It is best to stay mobile to avoid development of blood clots in your legs. Medications: Pain management You may take Tylenol (Acetaminophen) or Ibuprofen (for example, Motrin, Advil etc) for mild pain. Any pain prescription medication ordered should be taken as prescribed for moderate to severe pain. Please take as directed. If the prescribed dosage is not controlling your pain, please contact Dr Guerrero. Do not drive, drink alcohol or operate heavy machinery while taking narcotic pain medications. You may Acetaminophen and Ibuprofen alternating. For example, you can take Acetaminophen at 10AM followed by Ibuprofen at 1pm, followed by Acetaminophen again at 4pm. We recommend keeping track of the dosage and time you take each to ensure you do not exceed the manager digital ad operations's recommended daily dosage. Take Ibuprofen with food, Acetaminophen may be taken on an empty stomach. Do not exceed 3g (3000mg) of Acetaminophen in 24 hours. Do not exceed 2400mg Ibuprofen in 24 hours. Augmentin 875 mg twice a day for a week. Labetalol 100 mg twice a day. Follow up: Please call the office for a follow up appointment in 2-5 days. Call your doctor immediately if you have: Fever of 100.4F (38C) or higher Redness, pain, or drainage at your incision site Bleeding that requires a new sanitary pad every hour Severe pain in the abdomen Pain or urgency with urination Foul odor from vaginal discharge Trouble urinating or emptying your bladder No bowel movement within 1 week after the of your baby Swollen, red, painful area in the leg Appearance of rash or hives Sore, red, painful area on the breasts that may come with flu-like symptoms Feelings of anxiety, panic, and/or depression Disposition: HOME - Home Medications Comprehensive Discharge Medication List: Ambulatory Orders Aspirin [Ecotrin] 81 mg PO DAILY 10/19/19 Pnv No.95/Ferrous Fum/Folic AC [ Vitamin Tablet] 1 each PO DAILY Labetalol HCl [Normodyne -] 100 mg PO BID 10/23/19 Acetaminophen [Tylenol] 975 mg PO Q6H PRN #20 tablet 10/27/19 Ascorbate Calcium [Vitamin C] 500 mg PO DAILY #30 tablet 10/27/19 Docusate Sodium [Colace] 100 mg PO BID 30 Days #60 capsule 10/27/19 Ferrous Sulfate [Feosol] 325 mg PO DAILY 30 Days #30 tablet 10/27/19 oxyCODONE HCL [Roxicodone -] 5 mg PO Q6H PRN #16 tablet MDD 5 10/27/19 Prescription Drug Monitoring Program (I-STOP) results: I-STOP reviewed and no issues identified
--- NOTE | 2019-11-06 16:06 | PATH ---
Surgical Pathology Report Patient Name: KELY ARROYO [facility]. Rec. 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 PLACENTA, SECTION: 476 G THIRD TRIMESTER PLACENTA WITH TRIVASCULAR UMBILICAL CORD AND UNREMARKABLE PLACENTAL MEMBRANES. B. FALLOPIAN TUBE, RIGHT, PARTIAL EXCISION: UNREMARKABLE FALLOPIAN TUBE (INCLUDING FIMBRIATED END AND FULL LUMINAL PORTION). C. FALLOPIAN TUBE, LEFT, PARTIAL EXCISION: FALLOPIAN TUBE WITH PARATUBAL AND WALTHARD NEST CYSTS (INCLUDING FIMBRIATED END AND FULL LUMINAL PORTION). D. KELOID/SCAR TISSUE, EXCISION: DERMAL SCAR WITH KELOIDAL-TYPE COLLAGEN. Electronically Signed Alessandra Rossi M.D. Gross Description A. The specimen is received fresh labeled placenta and is a 476 gram, 14.0 x 13.5 x 3.7 cm. placenta with attached membranes and umbilical cord. The attached membranes are warner, thickened, cloudy and insert marginally. The umbilical cord measures 26 cm. in length and averages 1 cm. in diameter. The cord inserts eccentrically, 4 cm. to the nearest margin. No true knots or strictures are identified. Cut surface of the umbilical cord reveals 3 vessels. The surface is kaur-blue with minimal fibrin deposition and appropriate caliber vessels. The maternal surface is red-brown with focal defects. Sectioning reveals red-brown, spongy parenchyma. No lesions are identified. Organic Extractions Technician sections are submitted in three cassettes as follows: 1- membrane rolls and umbilical cord; 2-3- full thickness sections of placenta. B. Received in formalin labeled "right portion of fallopian tube," is a 3.5 cm in length fimbriated fallopian tube. The outer surface is warner-hensley and smooth. Sectioning reveals an unremarkable lumen. Organic Extractions Technician sections are submitted in 2 cassettes as follows: 1-fimbria; 2-cross sections of fallopian tube. C. Received in formalin labeled "left fallopian tube," is a 3.5 cm in length fimbriated fallopian tube. The outer surface is kaur purple and smooth with a 1.3 cm greatest dimension paratubal cyst attached to the fimbria. Sectioning reveals an unremarkable lumen. Organic Extractions Technician sections are submitted in 2 cassettes as follows: 1-fimbria and paratubal cyst; 2-cross sections of fallopian tube. D. Received in formalin labeled "scar tissue," is a 12.0 x 0.5 cm warner, elongated, unoriented portion of skin with a central, linear scar. Organic Extractions Technician sections are submitted in one cassette. 11/03/2019 [facility]/2019
== END 2019-10-29 18:15 | disposition home or self-care (01) | DRG 783 ==
LOC: JLDR 15:00 → J3W 10-25 12:06
PROVIDERS: ADMIT Specialist; ATTEND Specialist
PROC: 10D00Z1 Extraction of Products of Conception, Low, Open Approach (ICD-10-PCS; principal; 2019-10-25)
PROC: 0UB70ZZ Excision of Bilateral Fallopian Tubes, Open Approach (ICD-10-PCS; 2019-10-25)
PROC: 30233N1 Transfusion of Nonautologous Red Blood Cells into Peripheral Vein, Percutaneous Approach (ICD-10-PCS; 2019-10-26)
DX: O14.93 Unspecified pre-eclampsia, third trimester (principal); O60.14X0 Preterm labor third trimester with preterm delivery third trimester, not applicable or unspecified; O13.3 Gestational [pregnancy-induced] hypertension without significant proteinuria, third trimester; O34.13 Maternal care for benign tumor of corpus uteri, third trimester; D25.0 Submucous leiomyoma of uterus; O99.013 Anemia complicating pregnancy, third trimester; Z3A.36 36 weeks gestation of pregnancy; O90.2 Hematoma of obstetric wound; Z37.0 Single live birth; Z30.2 Encounter for sterilization
CPT/HCPCS: 36415; 36430; 74176-TC; 80048; 85025; 85610; 85730; 86593; 86850; 86900; 86901; 86922; 88302-TC; 88304-TC; 88307-TC; J0131; P9038; P9058